=== PATIENT | male | born 2000 | race Caucasian/White ===

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

== ENCOUNTER → 2018-02-12 | Day surgery (SDC) | payer OTHER ==
[2018-02-05 13:06] VITALS: BMI 20.3
[~2018-02-12] MED LIST: BUPIVACAINE HCL/PF (5 MG/ML) 30 ML VIAL IJ ONE; DEXAMETHASONE SOD PHOSPHATE 4 MG/1 ML VIAL ONE; DEXAMETHASONE SOD PHOSPHATE/PF 10 MG/ML SDV ONE; HYDROmorphone HCL 2 MG TABLET ONE; HYDROmorphone HCL 2 MG TABLET PO ONE; LIDOCAINE HCL/PF 2% SDV 5ML VIAL ONE; MIDAZOLAM HCL 2 MG/2 ML SINGLE DOSE VIAL ONE; ONDANSETRON 4 MG/2 ML VIAL IVPUSH PRN; ONDANSETRON 4 MG/2 ML VIAL ONE; PROMETHAZINE HCL 25 MG/1 ML VIAL IVPUSH PRN; PROPOFOL 20 ML ONE; SUCCINYLCHOLINE CHLORIDE 200 MG/10 ML VIAL ONE; ceFAZolin SODIUM 1 GM VIAL ONE; oxyCODONE HCL 5 MG TABLET PO PRN
[2018-02-12 15:27] VITALS: TEMP 98.2
[2018-02-12 16:09] VITALS: BP 123/71; PULSE 82
--- NOTE | 2018-02-13 17:28 | OP ---
DATE OF OPERATION: 02/12/2018 PREOPERATIVE DIAGNOSIS: Left shoulder recurrent anterior instability. POSTOPERATIVE DIAGNOSIS: Left shoulder recurrent anterior instability. OPERATIVE PROCEDURE: Left shoulder anterior arthroscopic capsulorrhaphy, stabilization and anterior inferior capsular shift. SURGEON: Lawrence Valentin M.D. TELEVISION CABLE INSTALLER: Lalita Drew ANESTHESIA: Regional. COMPLICATIONS: None. ESTIMATED BLOOD LOSS: Minimal. INDICATION FOR PROCEDURE: The patient is a 18-year-old male with the above findings, indicated for operative treatment. Risks, benefits, and alternatives were discussed with the patient at length. Proper informed consent was obtained. DESCRIPTION OF PROCEDURE: After proper identification of the patient and correct operative site, patient was brought to the operating room and placed supine on the operating room table, all bony prominences well padded. Regional anesthesia was given, sedation was given. Patient was placed in the beach chair position, all points of contact well padded and in line surgical position maintained throughout the procedure. Examination under anesthesia showed full motion of the shoulder with mild anterior laxity. Anterior and posterior arthroscopic portals were established. The skin incision made blunt dissection down to joint capsule. Glenohumeral joint was observed and found to be free of articular defects; however, a full thickness tear of the anterior inferior labrum was found. This was from approximately the 9 o'clock to the 7 o'clock position. Mild synovitis was debrided with mechanical shaver, rotator cuff including subscapularis and biceps tendons were intact. No loose bodies were found. The edge of the glenoid was debrided as was the Bankart lesion. Capsule was elevated in order to repair. At this point, repair was commenced using 2 Arthrex Pushlock sutures and Fiberwire suture. This was passed through the capsule and labrum in the anterior inferior portion of the joint, and this was repaired and shifted superiorly onto the glenoid. This provided secure stable fixation of the labral tear as well as increased stability of the shoulder, which was no longer able to be subluxed. Full range of motion was achieved without tension. Wound was irrigated with saline and repaired with 5-0 nylon sutures. Sterile dressings were applied. sling were placed. Patient brought to recovery in stable condition. Kit Byrd, the operator/assistant foreman, was integral throughout the procedure. Procedure could not have been completed without a skilled operative operator/assistant foreman. Alie [id number]
== END | disposition home or self-care (01) ==
LOC: FASU 12:02
PROVIDERS: ATTEND Orthopaedic Surgery Hand Surgery
PROC: 0RQK4ZZ Repair Left Shoulder Joint, Percutaneous Endoscopic Approach (ICD-10-PCS; principal; 2018-02-12 13:52)
DX: S43.82XA Sprain of other specified parts of left shoulder girdle, initial encounter (principal); M25.312 Other instability, left shoulder; X58.XXXA Exposure to other specified factors, initial encounter; Y93.9 Activity, unspecified; Y92.9 Unspecified place or not applicable

== ENCOUNTER 2023-06-20 10:19 | Emergency (ER) | payer OTHER ==
[2023-06-20 10:52] VITALS: BP 119/73; PULSE 83; RESP 18; TEMP 98; BMI 19.6
[2023-06-20] MEDS: SODIUM CHLORIDE 0.9% 1000 ML INFUS.BAG IV ONE (11:00)
[2023-06-20] MEDS: ACETAMINOPHEN 1000 MG/100 ML BAG IVPB ONE (11:00)
[2023-06-20] MEDS ORDERED: METOCLOPRAMIDE HCL INJECTION 10 MG/2 ML VIAL ONE (11:05)
[2023-06-20] MEDS ORDERED: ACETAMINOPHEN INJECTION 100 ML IVPB ONE (11:05)
[2023-06-20] MEDS: METOCLOPRAMIDE HCL INJECTION 10 MG/2 ML VIAL IVPB ONE (11:36)
== END 2023-06-20 12:56 | disposition home or self-care (01) ==
LOC: FER 10:19
PROC: 3E030NZ Introduction of Analgesics, Hypnotics, Sedatives into Peripheral Vein, Open Approach (ICD-10-PCS; principal; 2023-06-20)
PROC: 3E030GC Introduction of Other Therapeutic Substance into Peripheral Vein, Open Approach (ICD-10-PCS; 2023-06-20)
PROC: 3E030GC Introduction of Other Therapeutic Substance into Peripheral Vein, Open Approach (ICD-10-PCS; 2023-06-20)
DX: G43.909 Migraine, unspecified, not intractable, without status migrainosus (principal)
CPT/HCPCS: 70450-TC; 99284-25; J0131